=== PATIENT | male | born 1980 | race Caucasian/White ===

== ENCOUNTER 2024-06-05 07:52 | Outpatient (CLI) | payer BC, SELFPAY | END 2024-06-05 07:53 | disposition home or self-care (01) | PROVIDERS: PCP Family Medicine; Visit Provider Family Medicine | DX: Z00.00 Encounter for general adult medical examination without abnormal findings (principal); R03.0 Elevated blood-pressure reading, without diagnosis of hypertension; E66.01 Morbid (severe) obesity due to excess calories; Z13.6 Encounter for screening for cardiovascular disorders | CPT/HCPCS: 80053; 80061; 84443 ==

== ENCOUNTER 2024-07-31 07:46 | Outpatient (CLI) | payer BC, SELFPAY ==
--- NOTE | 2024-07-31 09:19 | W.ANESCHARGE ---
Anesthesia Charges Start Date/Time Anesthesia Start Date: 07/31/24 Anesthesia Start Time: 08:41 Stop Date/Time Anesthesia Stop Date: 07/31/24 Anesthesia Stop Time: 09:13
--- NOTE | 2024-07-31 09:28 | W.ANESCHARGE ---
Anesthesia Charges Start Date/Time Anesthesia Start Date: 07/31/24 Anesthesia Start Time: 08:41 Stop Date/Time Anesthesia Stop Date: 07/31/24 Anesthesia Stop Time: 09:13
== END 2024-07-31 07:47 | disposition home or self-care (01) ==
LOC: OP CLINIC 07:47
PROVIDERS: PCP Family Medicine; Visit Provider Surgery
DX: Z12.11 Encounter for screening for malignant neoplasm of colon (principal); D12.0 Benign neoplasm of cecum; D12.3 Benign neoplasm of transverse colon; K57.30 Diverticulosis of large intestine without perforation or abscess without bleeding
CPT/HCPCS: 00811; 45385; 88305; J2704

== ENCOUNTER 2025-07-03 07:41 | Outpatient (CLI) | payer BC, SELFPAY | END 2025-07-03 07:42 | disposition home or self-care (01) | LOC: NFLDREF 07-09 13:30 | PROVIDERS: PCP Family Medicine; Referring Provider Family Medicine; Visit Provider Family Medicine | DX: E78.5 Hyperlipidemia, unspecified (principal) | CPT/HCPCS: 80053; 80061 ==